=== PATIENT | female | born 1980 | race Caucasian/White ===

== ENCOUNTER 2019-01-15 16:34 | Emergency (ER) | payer MEDICAID, OTHER ==
[~2019-01-15] VITALS: Ht 157.5 cm; Wt 63.6 kg
[2019-01-15 17:42] LABS: BASOPHILS % (AUTO) 0.8 % (0-1); EOSINOPHILS # (AUTO) 0.1 X10'3 (0-0.9); EOSINOPHILS % (AUTO) 1.8 % (0-6); LYMPHOCYTES # (AUTO) 1.4 X10'3 (1.1-4.8); LYMPHOCYTES % (AUTO) 23.6 % (21-51); MEAN CORPUSCULAR HEMOGLOBIN 26.4 PG (27.0-31.0); MEAN CORPUSCULAR HGB CONC 32.5 g/dL (33.0-36.5); MEAN CORPUSCULAR VOLUME 81.2 FL (78-98); MEAN PLATELET VOLUME 7.8 FL (7.4-10.4); MONOCYTES # (AUTO) 0.6 X10'3 (0-0.9); MONOCYTES % (AUTO) 9.6 % (2-12); NEUTROPHILS # (AUTO) 3.8 X10'3 (1.8-7.7); NEUTROPHILS % (AUTO) 64.2 % (42-75); PLATELET COUNT 263 X10'3 (140-440); RED BLOOD COUNT 4.56 X10'6 (4.20-5.60); RED CELL DISTRIBUTION WIDTH 14.7 % (11.5-14.5); WHITE BLOOD COUNT 5.9 X10'3 (4.5-11.0)
[2019-01-15 17:55] LABS: CLARITY,URINE CLOUDY (Clear); COLOR,URINE YELLOW (Yellow); GLUCOSE, URINE NEGATIVE (Neg); KETONES,URINE NEGATIVE (Neg); LEUKOCYTE ESTERASE ,URINE TRACE (Neg); NITRITES, URINE POSITIVE (Neg); OCCULT BLOOD,URINE LARGE (Neg); PH,URINE 5.5 (4.8-8.0); PROTEIN,URINE TRACE mg/dl (Neg); UROBILINOGEN,URINE 0.2 E.U/dL (0.2-1.0)
[2019-01-15 17:56] LABS: ALANINE AMINOTRANSFERASE 76 U/L (12-78); ALBUMIN 3.1 G/DL (3.4-5.0); ALBUMIN/GLOBULIN RATIO 0.7 (1.1-1.5); ALKALINE PHOSPHATASE 232 IU/L (46-116); AMYLASE 59 U/L (25-115); ANION GAP 7 (8-16); ASPARTATE AMINO TRANSFERASE 33 U/L (10-37); BILIRUBIN,TOTAL 0.2 MG/DL (0.1-1.0); BLOOD UREA NITROGEN 14 MG/DL (7-18); BUN/CREATININE RATIO 19.2 (6.6-38.0); CALCIUM 8.9 MG/DL (8.5-10.1); CHLORIDE 103 MMOL/L (99-107); CREATININE 0.73 MG/DL (0.40-0.90); GLUCOSE 118 MG/DL (70-104); LIPASE 103 U/L (73-393); POTASSIUM 3.7 MMOL/L (3.5-5.1); SODIUM 137 MMOL/L (135-145); TOTAL PROTEIN 7.8 G/DL (6.4-8.2); eGFR 89 ML/MIN
[2019-01-15 18:03] LABS: UA COLLECTION TYPE CLN CATCH MIDSTREAM
--- NOTE | 2019-01-15 18:05 | NUR ---
UA REJECTED FOR CULTURE
[2019-01-15 18:06] LABS: BACTERIA,URINE 4+ /HPF (Neg); MUCUS STRANDS MANY /LPF (Neg); SQUAMOUS EPITHELIAL CELL,UR MANY /LPF (FEW); WBC,URINE 30-50 /HPF (0-4)
[2019-01-15] MEDS ORDERED: ondansetron/PF 4mg/2ml inj IV ONE (19:55)
[2019-01-15] MEDS ORDERED: normal saline 1000ML IV soln IVB ONE (19:55)
[2019-01-15] MEDS ORDERED: pantoprazole 40 MG vial IV ONE (19:55)
[2019-01-15 20:24] LABS: CLARITY,URINE SLIGHTLY CLOUDY (Clear); COLOR,URINE YELLOW (Yellow); GLUCOSE, URINE NEGATIVE (Neg); KETONES,URINE NEGATIVE (Neg); LEUKOCYTE ESTERASE ,URINE TRACE (Neg); NITRITES, URINE POSITIVE (Neg); OCCULT BLOOD,URINE LARGE (Neg); PROTEIN,URINE TRACE mg/dl (Neg); UROBILINOGEN,URINE 0.2 E.U/dL (0.2-1.0)
[2019-01-15 20:26] VITALS: BP 126/83
[2019-01-15 20:29] LABS: UA COLLECTION TYPE CLN CATCH MIDSTREAM
[2019-01-15 20:31] LABS: BACTERIA,URINE 4+ /HPF (Neg); SQUAMOUS EPITHELIAL CELL,UR MODERATE /LPF (FEW); WBC,URINE 50-100 /HPF (0-4)
[2019-01-15 20:32] LABS: MUCUS STRANDS FEW /LPF (Neg)
[2019-01-15] MEDS ORDERED: CEPH500C5 PO (21:15)
--- NOTE | 2019-01-15 22:00 | NUR ---
PATIENT ELOPED WITH IV, CALLED PATIENTS PHONE # [phone] LEFT MESSAGE CALLED LIZZETTE, TO SEND PATIENT BACK IF FOUND FOR THE IV TO BE DC'D
== END 2019-01-15 22:00 | disposition left against medical advice (07) ==
LOC: ER 16:35
DX: R11.10 Vomiting, unspecified (principal); R61 Generalized hyperhidrosis; R79.1 Abnormal coagulation profile; F17.200 Nicotine dependence, unspecified, uncomplicated; F12.90 Cannabis use, unspecified, uncomplicated; F15.90 Other stimulant use, unspecified, uncomplicated
CPT/HCPCS: 36415; 80053; 81001; 82150; 83690; 85025; 85610; 87077; 87088; 87186; 96374; 96375; 99283; C9113; J2405; J7030

== ENCOUNTER 2020-01-07 12:54 | Emergency (ER) | payer MEDICAID ==
[~2020-01-07] VITALS: Ht 157.5 cm; Wt 56.8 kg
[~2020-01-07 12:54] MED LIST: CEPH500C5 PO
[2020-01-07 12:55] VITALS: BP 114/78
== END 2020-01-07 13:20 | disposition home or self-care (01) ==
LOC: ER 12:55
DX: R53.83 Other fatigue (principal); M54.2 Cervicalgia; R42 Dizziness and giddiness; F12.90 Cannabis use, unspecified, uncomplicated; F15.90 Other stimulant use, unspecified, uncomplicated
CPT/HCPCS: 99281

== ENCOUNTER 2020-05-30 20:27 | Emergency (ER) | payer MEDICAID ==
[~2020-05-30] VITALS: Ht 157.5 cm; Wt 49.2 kg
[2020-05-30 20:33] VITALS: BP 154/98
[2020-05-30] MEDS ORDERED: NAPR-56 PO (21:45)
[2020-05-30] MEDS ORDERED: HYDROcodone/acetaminophen 5mg/325mg tablet PO ONE (21:45)
[2020-05-30] MEDS ORDERED: PENI250T2 PO (21:45)
== END 2020-05-30 22:04 | disposition home or self-care (01) ==
LOC: ER 20:28
DX: K08.89 Other specified disorders of teeth and supporting structures (principal); F12.90 Cannabis use, unspecified, uncomplicated; F15.90 Other stimulant use, unspecified, uncomplicated; Z79.899 Other long term (current) drug therapy
CPT/HCPCS: 99283

== ENCOUNTER 2020-07-08 01:18 | Emergency (ER) | payer MEDICAID ==
[~2020-07-08] VITALS: Ht 157.5 cm; Wt 57.3 kg
[2020-07-08 01:59] LABS: BASOPHILS # (AUTO) 0.1 X10'3 (0-0.2); EOSINOPHILS # (AUTO) 0.2 X10'3 (0-0.9); EOSINOPHILS % (AUTO) 1.6 % (0-6); HEMATOCRIT 36.3 % (35.0-45.0); LYMPHOCYTES # (AUTO) 2.4 X10'3 (1.1-4.8); LYMPHOCYTES % (AUTO) 24.6 % (21-51); MEAN CORPUSCULAR HEMOGLOBIN 28.6 PG (27.0-31.0); MEAN CORPUSCULAR HGB CONC 33.1 g/dL (33.0-36.5); MEAN CORPUSCULAR VOLUME 86.4 FL (78-98); MEAN PLATELET VOLUME 7.4 FL (7.4-10.4); MONOCYTES # (AUTO) 0.8 X10'3 (0-0.9); MONOCYTES % (AUTO) 8.3 % (2-12); NEUTROPHILS # (AUTO) 6.2 X10'3 (1.8-7.7); NEUTROPHILS % (AUTO) 64.5 % (42-75); PLATELET COUNT 218 X10'3 (140-440); RED CELL DISTRIBUTION WIDTH 14.2 % (11.5-14.5); WHITE BLOOD COUNT 9.6 X10'3 (4.5-11.0)
[2020-07-08 02:16] LABS: ALANINE AMINOTRANSFERASE 34 U/L (12-78); ALBUMIN 3.4 G/DL (3.4-5.0); ALBUMIN/GLOBULIN RATIO 0.9 (1.1-1.5); ALKALINE PHOSPHATASE 117 IU/L (46-116); ANION GAP 4 (8-16); ASPARTATE AMINO TRANSFERASE 25 U/L (10-37); BILIRUBIN,TOTAL 0.3 MG/DL (0.1-1.0); BLOOD UREA NITROGEN 10 MG/DL (7-18); BUN/CREATININE RATIO 13.2 (6.6-38.0); CALCIUM 8.6 MG/DL (8.5-10.1); CHLORIDE 102 MMOL/L (99-107); CREATININE 0.76 MG/DL (0.40-0.90); POTASSIUM 3.9 MMOL/L (3.5-5.1); SODIUM 136 MMOL/L (135-145); TOTAL CARBON DIOXIDE 30.2 MMOL/L (24-32); TOTAL PROTEIN 7.1 G/DL (6.4-8.2); eGFR 85 ML/MIN
[2020-07-08 02:25] LABS: GLUCOSE 93 MG/DL (70-104)
[2020-07-08] MEDS ORDERED: clindamycin 600mg/D5W 50ml 50 ML IV ONE (02:55)
[2020-07-08] MEDS ORDERED: CLIN-97 PO (03:11)
[2020-07-08 04:22] VITALS: BP 147/89
== END 2020-07-08 04:28 | disposition home or self-care (01) ==
LOC: ER 01:18
DX: K04.7 Periapical abscess without sinus (principal); R06.02 Shortness of breath; F17.200 Nicotine dependence, unspecified, uncomplicated; F12.90 Cannabis use, unspecified, uncomplicated; F15.90 Other stimulant use, unspecified, uncomplicated; Z88.2 Allergy status to sulfonamides; Z88.8 Allergy status to other drugs, medicaments and biological substances; Z79.899 Other long term (current) drug therapy
CPT/HCPCS: 36415; 71045; 80053; 83880; 84484; 85025; 93005; 96365; 99285; J3490